=== PATIENT | male | born 1960 | race African-American/Black ===

== ENCOUNTER 2020-05-07 16:49 | Inpatient (IN) ==
[2020-05-07] MEDS ORDERED: *HR* OxyCODONE Immed Rel 5 MG TABLET PO PRN (21:26)
[2020-05-07] MEDS ORDERED: Ondansetron ODT 4 MG TAB.RAPDIS SL PRN (21:26)
[2020-05-07] MEDS: Baclofen 10 MG TABLET PO SCH (22:55)
[2020-05-07] MEDS: *HR* OxyCODONE Immed Rel 5 MG TABLET PO PRN (22:56)
[2020-05-08] MEDS: *HR* Enoxaparin 40 MG/0.4 ML SYRINGE SQ SCH (05:22)
[2020-05-08] MEDS: *HR* OxyCODONE Immed Rel 5 MG TABLET PO PRN ×3 (05:22→20:58)
[2020-05-08 06:58] LABS: Basophils % 0.5 %; Eosinophils # 0.1 K/mcL (0.0-0.6); Eosinophils % 1.5 %; Hematocrit 41.1 % (37.5-50.1); Hemoglobin 13.5 g/dL (12.9-16.9); Immature Granulocytes % 0.3 % (0-4); Lymphocytes # 2.8 K/mcL (0.6-4.6); Lymphocytes % 31.9 %; Mean Corpuscular HGB Conc 32.8 g/dL (31.6-35.5); Mean Corpuscular Hemoglobin 34.9 pg (28.0-33.3); Mean Corpuscular Volume 106.2 fL (83.0-100.0); Mean Platelet Volume 10.7 fL (9.4-12.4); Monocytes # 0.6 K/mcL (0.0-1.3); Monocytes % 7.4 %; Platelet Count 175 K/mcL (140-400); Red Blood Count 3.87 M/mcL (4.19-5.50); Red Cell Distribution Width 12.5 % (11.5-14.5); Segmented Neutrophils % 58.4 %; White Blood Count 8.6 K/mcL (4.3-11.1)
[2020-05-08 08:03] LABS: Alanine Aminotransferase 10 Units/L (7-52); Albumin 3.7 g/dL (3.5-5.7); Albumin/Globulin Ratio 1.2 (1.1-2.2); Alkaline Phosphatase 26 Units/L (34-104); Aspartate Amino Transferase 15 Units/L (13-39); BUN/Creatinine Ratio 23 (6-26); Bilirubin,Total 0.6 mg/dL (0.3-1.0); Blood Urea Nitrogen 18 mg/dL (8-23); Calcium 9.1 mg/dL (8.6-10.3); Carbon Dioxide 23 mEq/L (23-29); Chloride 106 mEq/L (98-107); Glucose 117 mg/dL (70-105); Osmolality,Calculated 289 (280-300); Potassium 4.5 mEq/L (3.5-5.1); Sodium 138 mEq/L (136-145); Total Protein 6.7 g/dL (6.4-8.9); eGFR For African Americans > 60 (> 60); eGFR For Non-African Americans > 60 (> 60)
[2020-05-08] MEDS: atenoloL 50 MG TABLET PO SCH (09:51)
[2020-05-08] MEDS: amLODIPine 5 MG TABLET PO SCH (09:51)
[2020-05-08] MEDS: Cyanocobalamin (B-12) 1,000 MCG TABLET PO SCH (09:51)
[2020-05-08] MEDS: Baclofen 10 MG TABLET PO SCH ×3 (09:51→20:46)
[2020-05-08] MEDS: Gabapentin 100 MG CAPSULE PO SCH ×2 (15:00→20:47)
[2020-05-09] MEDS: *HR* Enoxaparin 40 MG/0.4 ML SYRINGE SQ SCH (05:54)
[2020-05-09] MEDS: atenoloL 50 MG TABLET PO SCH (10:55)
[2020-05-09] MEDS: Baclofen 10 MG TABLET PO SCH ×3 (10:55→21:03)
[2020-05-09] MEDS: amLODIPine 5 MG TABLET PO SCH (10:56)
[2020-05-09] MEDS: Cyanocobalamin (B-12) 1,000 MCG TABLET PO SCH (10:56)
[2020-05-09] MEDS: Gabapentin 100 MG CAPSULE PO SCH ×3 (10:56→21:03)
[2020-05-10] MEDS: *HR* Enoxaparin 40 MG/0.4 ML SYRINGE SQ SCH (05:10)
[2020-05-10] MEDS: atenoloL 50 MG TABLET PO SCH (09:22)
[2020-05-10] MEDS: Baclofen 10 MG TABLET PO SCH ×3 (09:22→20:59)
[2020-05-10] MEDS: Gabapentin 100 MG CAPSULE PO SCH ×3 (09:22→20:59)
[2020-05-10] MEDS: amLODIPine 5 MG TABLET PO SCH (09:22)
[2020-05-10] MEDS: Cyanocobalamin (B-12) 1,000 MCG TABLET PO SCH (09:23)
[2020-05-10] MEDS: Acetaminophen 325 MG TABLET PO PRN (14:16)
[2020-05-10] MEDS: Sennosides 8.6 MG TABLET PO SCH (20:59)
[2020-05-10] MEDS: *HR* OxyCODONE Immed Rel 5 MG TABLET PO PRN (21:05)
[2020-05-11] MEDS: *HR* Enoxaparin 40 MG/0.4 ML SYRINGE SQ SCH (04:56)
[2020-05-11] MEDS: Baclofen 10 MG TABLET PO SCH ×3 (10:06→17:39)
[2020-05-11] MEDS: atenoloL 50 MG TABLET PO SCH (10:06)
[2020-05-11] MEDS: Gabapentin 100 MG CAPSULE PO SCH ×3 (10:06→21:37)
[2020-05-11] MEDS: Sennosides 8.6 MG TABLET PO SCH ×2 (10:06→21:36)
[2020-05-11] MEDS: Cyanocobalamin (B-12) 1,000 MCG TABLET PO SCH (10:06)
[2020-05-11] MEDS: polyethylene glycoL 3350 17 GM POWD.PACK PO SCH (10:06)
[2020-05-11] MEDS: amLODIPine 5 MG TABLET PO SCH (10:06)
[2020-05-11] MEDS: Acetaminophen 325 MG TABLET PO PRN ×2 (10:12→21:47)
[2020-05-12] MEDS: *HR* Enoxaparin 40 MG/0.4 ML SYRINGE SQ SCH (05:19)
[2020-05-12] MEDS: Acetaminophen 325 MG TABLET PO PRN (05:21)
[2020-05-12] MEDS: Sennosides 8.6 MG TABLET PO SCH ×2 (08:40→21:56)
[2020-05-12] MEDS: polyethylene glycoL 3350 17 GM POWD.PACK PO SCH (08:40)
[2020-05-12] MEDS: amLODIPine 5 MG TABLET PO SCH (08:40)
[2020-05-12] MEDS: atenoloL 50 MG TABLET PO SCH (08:40)
[2020-05-12] MEDS: Cyanocobalamin (B-12) 1,000 MCG TABLET PO SCH (08:40)
[2020-05-12] MEDS: Gabapentin 100 MG CAPSULE PO SCH ×3 (08:40→21:56)
[2020-05-12] MEDS: Baclofen 10 MG TABLET PO SCH ×3 (08:40→21:55)
[2020-05-12] MEDS: *HR* OxyCODONE Immed Rel 5 MG TABLET PO PRN (21:55)
[2020-05-13] MEDS: *HR* Enoxaparin 40 MG/0.4 ML SYRINGE SQ SCH (06:03)
[2020-05-13] MEDS: Baclofen 10 MG TABLET PO SCH ×4 (09:27→20:57)
[2020-05-13] MEDS: Gabapentin 100 MG CAPSULE PO SCH ×3 (09:27→20:57)
[2020-05-13] MEDS: Cyanocobalamin (B-12) 1,000 MCG TABLET PO SCH (09:27)
[2020-05-13] MEDS: atenoloL 50 MG TABLET PO SCH (09:27)
[2020-05-13] MEDS: amLODIPine 5 MG TABLET PO SCH (09:27)
[2020-05-13] MEDS: Acetaminophen 325 MG TABLET PO PRN (09:27)
[2020-05-13] MEDS: Sennosides 8.6 MG TABLET PO SCH ×2 (09:27→20:57)
[2020-05-13] MEDS: polyethylene glycoL 3350 17 GM POWD.PACK PO SCH (09:28)
[2020-05-14] MEDS: *HR* Enoxaparin 40 MG/0.4 ML SYRINGE SQ SCH (05:26)
[2020-05-14 06:20] LABS: Hematocrit 38.4 % (37.5-50.1); Hemoglobin 12.4 g/dL (12.9-16.9); Mean Corpuscular HGB Conc 32.3 g/dL (31.6-35.5); Mean Corpuscular Volume 105.2 fL (83.0-100.0); Mean Platelet Volume 10.5 fL (9.4-12.4); Platelet Count 192 K/mcL (140-400); Red Blood Count 3.65 M/mcL (4.19-5.50); Red Cell Distribution Width 12.2 % (11.5-14.5); White Blood Count 6.8 K/mcL (4.3-11.1)
[2020-05-14 06:50] LABS: Alanine Aminotransferase 12 Units/L (7-52); Albumin 3.5 g/dL (3.5-5.7); Albumin/Globulin Ratio 1.3 (1.1-2.2); Alkaline Phosphatase 30 Units/L (34-104); Aspartate Amino Transferase 8 Units/L (13-39); BUN/Creatinine Ratio 19 (6-26); Blood Urea Nitrogen 14 mg/dL (8-23); Calcium 8.8 mg/dL (8.6-10.3); Carbon Dioxide 30 mEq/L (23-29); Chloride 104 mEq/L (98-107); Globulin 2.7 g/dL (2.4-3.5); Glucose 176 mg/dL (70-105); Magnesium 1.8 mg/dL (1.6-2.6); Osmolality,Calculated 293 (280-300); Potassium 3.7 mEq/L (3.5-5.1); Sodium 139 mEq/L (136-145); Total Protein 6.2 g/dL (6.4-8.9); eGFR For African Americans > 60 (> 60); eGFR For Non-African Americans > 60 (> 60)
[2020-05-14 07:04] LABS: Bilirubin,Total 0.4 mg/dL (0.3-1.0)
[2020-05-14] MEDS: amLODIPine 5 MG TABLET PO SCH (08:51)
[2020-05-14] MEDS: Cyanocobalamin (B-12) 1,000 MCG TABLET PO SCH (08:52)
[2020-05-14] MEDS: Baclofen 10 MG TABLET PO SCH ×3 (08:52→20:36)
[2020-05-14] MEDS: atenoloL 50 MG TABLET PO SCH (08:52)
[2020-05-14] MEDS: Gabapentin 100 MG CAPSULE PO SCH ×3 (08:56→20:37)
[2020-05-14] MEDS: polyethylene glycoL 3350 17 GM POWD.PACK PO SCH (08:56)
[2020-05-14] MEDS: Sennosides 8.6 MG TABLET PO SCH ×2 (08:57→20:37)
[2020-05-14] MEDS: *HR* OxyCODONE Immed Rel 5 MG TABLET PO PRN (20:47)
[2020-05-15] MEDS: *HR* Enoxaparin 40 MG/0.4 ML SYRINGE SQ SCH (05:53)
[2020-05-15] MEDS: Acetaminophen 325 MG TABLET PO PRN (06:00)
[2020-05-15] MEDS: Sennosides 8.6 MG TABLET PO SCH ×2 (09:47→21:37)
[2020-05-15] MEDS: polyethylene glycoL 3350 17 GM POWD.PACK PO SCH (09:47)
[2020-05-15] MEDS: Baclofen 10 MG TABLET PO SCH ×3 (09:47→21:36)
[2020-05-15] MEDS: atenoloL 50 MG TABLET PO SCH (09:47)
[2020-05-15] MEDS: amLODIPine 5 MG TABLET PO SCH (09:47)
[2020-05-15] MEDS: Cyanocobalamin (B-12) 1,000 MCG TABLET PO SCH (09:47)
[2020-05-15] MEDS: Gabapentin 100 MG CAPSULE PO SCH ×3 (09:47→21:32)
[2020-05-15] MEDS: *HR* OxyCODONE Immed Rel 5 MG TABLET PO PRN (21:36)
[2020-05-16] MEDS: *HR* Enoxaparin 40 MG/0.4 ML SYRINGE SQ SCH (06:30)
[2020-05-16] MEDS: amLODIPine 5 MG TABLET PO SCH (09:36)
[2020-05-16] MEDS: Cyanocobalamin (B-12) 1,000 MCG TABLET PO SCH (09:36)
[2020-05-16] MEDS: Baclofen 10 MG TABLET PO SCH ×3 (09:36→22:51)
[2020-05-16] MEDS: Gabapentin 100 MG CAPSULE PO SCH ×3 (09:36→22:51)
[2020-05-16] MEDS: atenoloL 50 MG TABLET PO SCH (09:37)
[2020-05-16] MEDS: polyethylene glycoL 3350 17 GM POWD.PACK PO SCH (09:38)
[2020-05-16] MEDS: Sennosides 8.6 MG TABLET PO SCH ×2 (09:38→22:56)
[2020-05-16] MEDS: *HR* OxyCODONE Immed Rel 5 MG TABLET PO PRN (22:51)
[2020-05-17] MEDS: *HR* Enoxaparin 40 MG/0.4 ML SYRINGE SQ SCH (06:43)
[2020-05-17] MEDS: polyethylene glycoL 3350 17 GM POWD.PACK PO SCH (10:13)
[2020-05-17] MEDS: Gabapentin 100 MG CAPSULE PO SCH ×2 (10:18→14:24)
[2020-05-17] MEDS: atenoloL 50 MG TABLET PO SCH (10:18)
[2020-05-17] MEDS: Baclofen 10 MG TABLET PO SCH ×2 (10:18→14:24)
[2020-05-17] MEDS: Cyanocobalamin (B-12) 1,000 MCG TABLET PO SCH (10:18)
[2020-05-17] MEDS: amLODIPine 5 MG TABLET PO SCH (10:18)
[2020-05-17] MEDS: Sennosides 8.6 MG TABLET PO SCH (10:18)
[2020-05-17 10:30] VITALS: BP 137/80
== END 2020-05-17 15:19 | disposition home or self-care (01) | DRG 560 ==
LOC: INPGRE 20:11
PROVIDERS: ADMIT Family Medicine; ATTEND Family Medicine